=== PATIENT | female | born 1975 | race Caucasian/White ===

== ENCOUNTER 2020-04-04 01:05 | Emergency (ER) | payer BC ==
[~2020-04-04] VITALS: Ht 167.6 cm; Wt 63.6 kg
[2020-04-04 01:06] VITALS: BP 113/69
[2020-04-04] MEDS ORDERED: ACETAMINOPHEN 500 MG TAB PO ONE (01:30)
[2020-04-04] MEDS ORDERED: IBUPROFEN 400 MG TAB PO ONE (01:30)
[2020-04-04] MEDS ORDERED: NORC1TAB7 PO (02:13)
[2020-04-04] MEDS ORDERED: NORCO 5/325MG TABLET (BULK FOR ED) PO ONE (02:15)
--- NOTE | 2020-04-04 07:50 | REP ---
Clinical: Trauma . Technique: AP, lateral, bilateral oblique views right ankle . Findings: No acute fracture or dislocation. Skeletal structures and joint spaces are intact and normal. Ankle mortise appears stable. No subcutaneous emphysema or radiodense foreign body. Impression: Normal right ankle radiograph series. Electronically Signed by Jeo Pacheco MD 04/04/2020 07:42 A
--- NOTE | 2020-04-04 07:59 | REP ---
Clinical: Trauma. Technique: AP, lateral views right foot . Findings: No definite acute fracture or dislocation is appreciated. A very subtle nondisplaced corner fracture along the anterior-superior margin of the calcaneus on lateral radiograph cannot be excluded and should be correlated clinically. Impression: No definite acute fracture or dislocation. As above. Electronically Signed by Joe Pacheco MD 04/04/2020 07:50 A
== END 2020-04-04 02:29 | disposition home or self-care (01) ==
LOC: M ED 01:05
DX: S92.021A Displaced fracture of anterior process of right calcaneus, initial encounter for closed fracture (principal); V93.87XA Other injury due to other accident on board water-skis, initial encounter; Y92.828 Other wilderness area as the place of occurrence of the external cause; Y93.17 Activity, water skiing and wake boarding; Y99.8 Other external cause status